=== PATIENT | female | born 1930 | race Caucasian/White ===

== ENCOUNTER 2018-03-24 05:58 | Emergency (ER) | payer MEDICARE ==
--- NOTE | 2018-03-24 06:09 | ED ---
Neurological HPI - HPI Summary HPI Summary: This is chelsea Torres documenting for attending Francisco Wakefield MD. LEVEL 5 CAVEAT DUE TO DEMENTIA This patient is an 87 year old F BIBA to ED with a chief complaint of unwitnessed fall earlier today. prison staff found her on the floor, unresponsive. They dont know how long she had been on the floor. Upon arrival of EMS, patient was still unresponsive. Upon arrival to [facility], the patient became alert and awake and has a C-collar put on by EMS. The patient has a hx of dementia but her normal is to know her name and birthday. The patient has no complaints. - History of Current Complaint Stated Complaint: FALL Time Seen by Provider: 03/24/18 06:01 Hx Obtained From: Patient, EMS Hx From Patient Unobtainable Due To: Dementia Onset/Duration: Sudden Onset Current Severity: None Pain Intensity: 0 Pain Scale Used: 0-10 Numeric Associated Signs and Symptoms: Positive: Loss of Consciousness - unknown how long the patient was on the floor before nursing staff found her - Allergy/Home Medications Allergies/Adverse Reactions: Allergies Allergy/AdvReac Type Severity Reaction Status Date / Time No Known Allergies Allergy Verified 03/24/18 06:07 Review of Systems Positive: Other - the patient has no complaints Neurological: Other - unwitnessed fall, unresponsive from upon arrival of EMS until now in the ER All Other Systems Reviewed And Are Negative: No Physical Exam - Summary Physical Exam Summary: VITAL SIGNS: Reviewed. GENERAL: Patient is an elderly FEMALE who is lying comfortable in the stretcher. Patient is not in any acute distress or respiratory distress. HEAD AND FACE: No signs of trauma. No ecchymosis, hematomas or skull depressions. No sinus tenderness. EYES: PERRLA, EOMI x 2, No injected conjunctiva, no nystagmus. EARS: Hearing grossly intact. Ear canals and tympanic membranes are within normal limits. MOUTH: Oropharynx within normal limits. NECK: C-collar in place. CHEST: Symmetric, no tenderness at palpation LUNGS: Clear to auscultation bilaterally. No wheezing or crackles. CVS: Regular rate and rhythm, S1 and S2 present, no murmurs or gallops appreciated. ABDOMEN: Soft, non-tender. No signs of distention. No rebound no guarding, and no masses palpated. Bowel sounds are normal. EXTREMITIES: FROM in all major joints, no edema, no cyanosis or clubbing. NEURO: Alert to name and birthday. SKIN: Dry and warm Triage Information Reviewed: Yes Vital Signs Reviewed: Yes Completion Of Physical Exam Limited Due To: Dementia Course/Dx - Course Assessment/Plan: This patient is an 87 yo F who took a fall. She has no complaints. This patient will be signed out to Dr. Beltran, awaiting CT Brain, CT C-spine, CXR, pelvis XR, re-eval, and dispo. - Differential Dx Differential Diagnoses Neuro: Positive: Other - fall - Diagnoses Provider Diagnoses: Fall Discharge - Sign-Out/Discharge Documenting (check all that apply): Sign-Out Patient Signing out patient TO: Mingo Beltran - Discharge Plan
[2018-03-24] MEDS ORDERED: Nitroglycerin 2% OINT* 1 GM PAK TOPICAL ONE (06:17)
[2018-03-24] MEDS ORDERED: Nitroglycerin 2% OINT* 1 GM PAK ONE (06:18)
--- NOTE | 2018-03-24 07:10 | ED ---
Progress - Progress Note Progress Note: This is chelsea Tran documenting for attending Mingo Beltran MD. CXR Impressions: No active cardiopulmonary disease. This report was reviewed by ED physician. Pelvic X-ray: Osteopenia. Osteoarthritis. Status post left hip arthroplasty. No acute osseous injury. If symptoms persist, recommend repeat imaging. This report was reviewed by ED physician. Cervical Spine CT: Osteopenia. Degenerative Disc Disease and Osteoarthiritis. Atherosclerosis. No acute osseous injury cervical spine. This report was reviewed by ED physician. Brain CT: No evidence for acute intracranial abnormality. Findings consistent with atrophy and moderate chronic small vessel ischemic changes. This report was reviewed by ED physician. - EKG/XRAY/CT XRAY: chest - No active cardiopulmonary disease. This report was reviewed by ED physician. - Additional EKG/XRAY/Consults XRAY #2: pelvis - Osteopenia. Osteoarthritis. Status post left hip arthroplasty. No acute osseous injury. If symptoms persist, recommend repeat imaging. This report was reviewed by ED physician. Re-Evaluation - Re-Evaluation First Eval Re-Evaluation Time: 08:13 Change: Improved Comment: Patient's blood pressure is improved and she has no complaints. Family is present and they report she is her normal self. Patient will be discharged to home and follow up with PCP within 3 days. Course/Dx - Course Course Of Treatment: Sherri was found on the floor unresponsive this morning. It was unknown how long she didn't lay there. She was apparently unresponsive or poorly responsive until arrival in the ED. When I came in to my shift she was awaiting CT results. These showed no acute pathology. No labs or EKG had been obtained. Spoke with her family who felt that she falls frequently and that she was behaving her normal self and felt that no further workup needed to be done. She herself was pleasant and cooperative and had no complaints. - Diagnoses Provider Diagnoses: Fall Discharge - Sign-Out/Discharge Documenting (check all that apply): Patient Departure - discharge - Discharge Plan Condition: Stable Disposition: HOME Patient Education Materials: Fall Prevention for Older Adults (ED) Referrals: Chaz Mohr MD [Primary Care Provider] - 3 Days Additional Instructions: Return to ED for any new or worsening symptoms. - Billing Disposition and Condition Condition: STABLE Disposition: Home
[2018-03-24] MEDS ORDERED: Enalapril TAB* 5 MG PO ONE (07:13)
--- NOTE | 2018-03-24 07:49 | RAD ---
HISTORY: fall COMPARISONS: None VIEWS: 1: frontal portable view of the chest at 7:00 AM FINDINGS: LINES AND TUBES: None. CARDIOMEDIASTINAL SILHOUETTE: The cardiomediastinal silhouette is normal for portable technique. PLEURA: The costophrenic angles are sharp. No pleural abnormalities are noted. LUNG PARENCHYMA: The lungs are clear. ABDOMEN: The upper abdomen is clear. There is no subphrenic gas. BONES AND SOFT TISSUES: No bone or soft tissue abnormalities are noted. IMPRESSION: NO ACTIVE CARDIOPULMONARY DISEASE. R0
--- NOTE | 2018-03-24 07:50 | RAD ---
HISTORY: fall COMPARISONS: None VIEWS: 1, Single frontal view of the pelvis . The patient is obliqued to the left. FINDINGS: BONE DENSITY: There is diffuse osteopenia. BONES: The patient is status post left hip summary arthroplasty. On the single frontal projection, there is no partial hardware failure or osteolysis. There is no displaced fracture. JOINTS: The patient is status post left hip arthroplasty. There is moderate osteoarthritis of the right hip. ALIGNMENT: There is no dislocation. SOFT TISSUES: Unremarkable. OTHER FINDINGS: Degenerative changes are noted of the spine. IMPRESSION: 1. OSTEOPENIA. 2. OSTEOARTHRITIS. 3. STATUS POST LEFT HIP ARTHROPLASTY. 4. NO ACUTE OSSEOUS INJURY. IF SYMPTOMS PERSIST, RECOMMEND REPEAT IMAGING R0
--- NOTE | 2018-03-24 07:59 | RAD ---
INDICATION: Head injury. COMPARISON: There are no prior studies available for comparison. TECHNIQUE: Contiguous axial sections of the brain were obtained from the skull base to the vertex without contrast. FINDINGS: The ventricles, cisterns and sulci are enlarged consistent with diffuse atrophy. There are multiple focal areas of decreased density in the subcortical and periventricular white matter suggestive of moderate chronic small vessel ischemic changes. No other focal abnormality or mass effect is seen. There is no evidence for hemorrhage. There appear to be small mucous retention cysts or polyps within the maxillary sinuses and there is mild mucosal thickening within the ethmoid and sphenoid sinus. The mastoid air cells appear clear. No fracture is seen. IMPRESSION: 1. NO EVIDENCE FOR ACUTE INTRACRANIAL ABNORMALITY. 2. FINDINGS CONSISTENT WITH ATROPHY AND MODERATE CHRONIC SMALL VESSEL ISCHEMIC CHANGES.
--- NOTE | 2018-03-24 08:03 | RAD ---
HISTORY: fall, found unresponsive COMPARISONS: None TECHNIQUE: Multiple contiguous axial CT scans were obtained of the cervical spine without intravenous contrast, with coronal and sagittal multiplanar reformations. FINDINGS: BRAIN: The visualized brain is unremarkable CENTRAL CANAL: Evaluation of the central canal is limited on CT technique; however, there is no obvious canalicular mass or epidural hemorrhage. ALIGNMENT: The alignment is normal, without subluxation or dislocation. VERTEBRAL BODIES: There is diffuse osteopenia. There is multilevel anterolateral marginal osteophyte formation. There is no displaced fracture. JOINTS: There is diffuse uncovertebral and facet osteoarthritis. There is osteoarthritis of the atlantoaxial articulation. MUSCULATURE: Unremarkable INTERVERTEBRAL DISCS: There is diffuse loss of intervertebral disc height. AXIAL IMAGES: C2-C3: There is no osseous neural foraminal narrowing or central canal stenosis. C3-C4: There is moderate bilateral neuroforaminal narrowing. There is no osseous central canal stenosis. C4-C5: There is severe bilateral neuroforaminal narrowing. There is mild narrowing of the central canal.. C5-C6: There is severe bilateral neuroforaminal narrowing. There is no osseous central canal stenosis. C6-C7: There is moderate bilateral neuroforaminal narrowing. There is no osseous canal stenosis. C7-T1: There is no osseous neural foraminal narrowing or central canal stenosis. SOFT TISSUES: There is calcification of the bifurcations bilaterally.. The prevertebral fat stripe is preserved. OTHER: None. IMPRESSION: 1. OSTEOPENIA. 2. DEGENERATIVE DISC DISEASE AND OSTEOARTHRITIS DESCRIBED ABOVE. 3. ATHEROSCLEROSIS. 4. NO ACUTE OSSEOUS INJURY CERVICAL SPINE. R2
[2018-03-24 08:50] VITALS: BP 177/72
[2018-03-24] MEDS ORDERED: Enalapril TAB* 20 MG PO ONE (09:00)
== END 2018-03-24 08:48 | disposition home or self-care (01) ==
LOC: ED 05:58
DX: R40.20 Unspecified coma (principal); F03.90 Unspecified dementia, unspecified severity, without behavioral disturbance, psychotic disturbance, mood disturbance, and anxiety; M85.88 Other specified disorders of bone density and structure, other site; M50.323 Other cervical disc degeneration at C6-C7 level; M47.812 Spondylosis without myelopathy or radiculopathy, cervical region; Z91.81 History of falling; Z96.642 Presence of left artificial hip joint
CPT/HCPCS: 70450; 71045; 72125; 72170; 99284; A9270-GY